=== PATIENT | male | born 1995 | race Caucasian/White ===

== ENCOUNTER 2018-12-09 05:25 | Emergency (ER) | payer OTHER ==
[2018-12-09] MEDS ORDERED: NORMAL SALINE 1000 ML 1,000 ML IV ONE (07:32)
[2018-12-09] MEDS ORDERED: DIPHENHYDRAMINE HCL 50 MG/ML VIAL IV ONE (07:47)
[2018-12-09] MEDS ORDERED: METOCLOPRAMIDE HCL INJ/PF 10 MG/2 ML SDV IV ONE (07:47)
--- NOTE | 2018-12-09 07:55 | ER Document Report ---
ED Headache - General Chief Complaint: Headache Stated Complaint: HEADACHE Time Seen by Provider: 12/09/18 07:31 TRAVEL OUTSIDE OF THE [place] IN LAST 30 DAYS: No - HPI Notes: Patient is a 23-year-old male that presents to the emergency department for chief complaint of headache. Patient reports having a headache for the last 2 years. He states there is always some pain in his head. Yesterday at noon he noticed increasing pain. He describes it as a tightness circumferentially around his head but states the very top of his head feels the worst. He denies being diagnosed with migraine headaches in the past but has had work-up at [facility]. He states in February of last year he had an MRI done but denied any treatment being started after that work-up. He states he was taking Motrin for the headaches but it was not working so he stopped. He has not taken any medication at home. He denies any aggravating or relieving factors to his headache. He does endorse associated nausea and blurry vision when the pain gets severe. He states he had one episode of emesis this morning. He denies any numbness, weakness or neck pain. Patient does state that today he felt chilled and his significant other checked his temperature. Initially she states it was 99.8 and then when she rechecked it 15 minutes later it increased to 101.2 orally. She is checked it with the ear thermometer and it was reportedly 102.0 in his ear. Patient denies sick contacts. He denies cough, congestion, sinus drainage, abdominal pain and urinary complaints. Past Medical History: Asthma Past Surgical History: Femur fracture repair Social History: Occasional alcohol. Denies tobacco and drug use. Family History: Parents have CAD. Denies history of clotting disorders Allergies: Reviewed, see documented allergy list. REVIEW OF SYSTEMS: CONSTITUTIONAL : fever No chills No diaphoresis No recent illness EENT: vision changes No congestion No sore throat CARDIOVASCULAR: No chest pain No palpitations RESPIRATORY: No shortness of breath No cough No difficulty breathing GASTROINTESTINAL: No abdominal pain nausea vomiting No diarrhea GENITOURINARY: No dysuria No hematuria No difficulty urinating MUSCULOSKELETAL: No back pain No leg pain No arm pain SKIN: No rashes No lesions LYMPHATIC: No swollen, enlarged glands. NEUROLOGICAL: No lightheadedness headache No weakness No paresthesias PSYCHIATRIC: No anxiety No depression PHYSICAL EXAMINATION: Vital signs reviewed, nursing noted reviewed. GENERAL: Appears uncomfortable, well-nourished, in moderate distress HEAD: Atraumatic, normocephalic. EYES: Eyes appear normal, extraocular movements intact, sclera anicteric, conjunctiva are normal. ENT: nares patent, oropharynx clear without exudates. Moist mucous membranes. NECK: No midline or paraspinal tenderness, normal range of motion, supple without lymphadenopathy, negative jolt sign. No meningismus. LUNGS: Breath sounds clear to auscultation bilaterally and equal. No wheezes rales or rhonchi. HEART: Regular rate and rhythm without murmurs ABDOMEN: Soft, nontender, normoactive bowel sounds. No rebound, guarding, or rigidity. No masses appreciated. EXTREMITIES: Nontender, good range of motion, no pitting or edema. NEUROLOGICAL: No focal neurological deficits. Moves all extremities spontaneously Motor and sensory grossly intact on exam. PSYCH: Normal mood, normal affect. SKIN: Warm, Dry, normal turgor, no rashes or lesions noted on exposed skin - Related Data Allergies/Adverse Reactions: amoxicillin Allergy (Unknown, Verified 12/09/18 07:00) Sulfa (Sulfonamide Antibiotics) Allergy (Unknown, Verified 12/09/18 07:00) Past Medical History - Social History Smoking Status: Never Smoker Chew tobacco use (# tins/day): No Frequency of alcohol use: None Drug Abuse: None Family History: Reviewed & Not Pertinent, Other - No history of clotting or bleeding disorders Patient has suicidal ideation: No Patient has homicidal ideation: No Neurological Medical History: Reports: Hx Migraine, Hx Seizures Renal/ Medical History: Denies: Hx Peritoneal Dialysis Physical Exam - Vital signs Vitals: Temp Pulse Resp BP Pulse Ox 99.3 F 98 20 142/80 H 96 12/09/18 05:31 12/09/18 05:31 12/09/18 05:31 12/09/18 05:31 12/09/18 05:31 Course - Re-evaluation Re-evalutation: 12/09/18 07:51 Vitals reviewed. Nursing notes reviewed. Patient was given IV fluids, Reglan and Benadryl for symptomatic management. He does appear uncomfortable but is afebrile at presentation. He has not had any antipyretic medication prior to coming to the emergency room. He does have records from February 05, 2018 when he had an MRI of his brain performed. It showed possible cortical venous thrombosis versus filling artifact. 12/09/18 10:13 After IV fluids Reglan and Benadryl patient was still reporting severe pain. He has become febrile in the emergency room. Patient was ordered Tylenol and Toradol for further symptomatic management. His blood work shows a leukocytosis of 13 and he has been ordered Rocephin and vancomycin for concern of possible meningitis. Patient required lumbar puncture for diagnosis of meningitis. Patient's lumbar puncture was grossly bloody. At this point I have contacted [facility] to discuss patient's findings with their neurosurgeon. His blood pressure is stable. He has a GCS of 15 and no focal neurologic deficits. Linette ent's headache is still severe after the Tylenol and Toradol and he has been ordered morphine for further pain management. 12/09/18 10:55 Patient's care was discussed with Dr. Walter Edwards, neurosurgery at [facility]. He agrees given the grossly bloody spinal tap that patient should be transferred to NICU for admission. He has no further recommendations for treatment at this time. Patient's care was then discussed with Dr. Dunbar, and ICU attending who has accepted patient for transfer. He did request patient received 1 g TXA which was given in the ED. Patient in agreement with plan of care. Laboratory 12/09/18 12/09/18 12/09/18 07:57 07:57 07:57 WBC 13.9 H RBC 5.65 H Hgb 16.2 Hct 47.3 MCV 84 MCH 28.7 MCHC 34.2 RDW 13.0 Plt Count 218 Seg Neutrophils % 82.4 H Lymphocytes % 7.8 L Monocytes % 7.7 Eosinophils % 1.7 Basophils % 0.4 Absolute Neutrophils 11.4 H Absolute Lymphocytes 1.1 Absolute Monocytes 1.1 Absolute Eosinophils 0.2 Absolute Basophils 0.1 PT 12.9 INR 0.97 APTT 27.3 Sodium 136.6 L Potassium 4.7 Chloride 103 Carbon Dioxide 24 Anion Gap 10 BUN 12 Creatinine 0.85 Est GFR ( Amer) > 60 Est GFR (Non-Af Amer) > 60 Glucose 104 Lactic Acid Calcium 9.5 12/09/18 08:56 WBC RBC Hgb Hct MCV MCH MCHC RDW Plt Count Seg Neutrophils % Lymphocytes % Monocytes % Eosinophils % Basophils % Absolute Neutrophils Absolute Lymphocytes Absolute Monocytes Absolute Eosinophils Absolute Basophils PT INR APTT Sodium Potassium Chloride Carbon Dioxide Anion Gap BUN Creatinine Est GFR ( Amer) Est GFR (Non-Af Amer) Glucose Lactic Acid 1.[address] 12/09/18 07:33 IMPRESSION: No acute intracranial pathology. No noncontrast CT findings to explain headache. EVIDENCE OF ACUTE STROKE: NO. - Vital Signs Vital signs: Temp Pulse Resp BP Pulse Ox 97.9 F 95 20 120/63 97 12/09/18 09:24 12/09/18 09:24 12/09/18 09:24 12/09/18 09:24 12/09/18 09:24 - Laboratory Result Diagrams: 12/09/18 07:57 12/09/18 07:57 Laboratory results interpreted by me: 12/09/18 12/09/18 07:57 07:57 WBC 13.9 H RBC 5.65 H Seg Neutrophils % 82.4 H Lymphocytes % 7.8 L Absolute Neutrophils 11.4 H Sodium 136.6 L Procedures - Lumbar Puncture Lumbar puncture Time completed: 10:00 Consent obtained: Yes Lumbar puncture pre-procedure: Sterile PPE donned, Betadine prep applied, Chloraprep applied, Sterile drapes applied Patient position: Sitting Lumbar puncture location: L4 Anesthetic type: 1% Lidocaine mL's of anesthetic: 5 Number of attempts: 2 Complications: No Notes: 12/09/18 10:21 Initial attempt at L4-L5 was unsuccessful. Second attempt at L3-L4 was successful with one needle redirection. Patient's tap was traumatic however the amount of blood increased from pink in the first tube to bright red blood by tube 3. Band-Aids were placed over the LP sites. Patient laid supine after the procedure. No immediate complications. Patient tolerated well. Critical Care Note - Critical Care Note Total time excluding time spent on procedures (mins): 45 Comments: Critical care time 45 exclusive from separate billable procedures for a patient requiring complex medical decision making, and high potential for clinical deterioration. Time spent obtaining history from patient or surrogate, discussions with consultants, development of treatment plan with patient or cintron rrogate, evaluation of patient's response to treatment, examination of patient, ordering and performing treatments and interventions, ordering and review of laboratory studies, re-evaluation of patient's condition, ordering and review of radiographic studies and review of old charts Discharge - Discharge Clinical Impression: Subarachnoid hemorrhage Condition: Stable Disposition: [facility]
[2018-12-09 08:03] LABS: ABSOLUTE BASOPHILS # (AUTO) 0.1 10^3/uL (0.0-0.2); ABSOLUTE EOSINOPHILS # (AUTO) 0.2 10^3/uL (0.0-0.6); ABSOLUTE LYMPHOCYTES (AUTO) 1.1 10^3/uL (0.5-4.7); ABSOLUTE MONOCYTES (AUTO) 1.1 10^3/uL (0.1-1.4); ABSOLUTE NEUT (AUTO) 11.4 10^3/uL (1.7-8.2); BASOPHILS % (AUTO) 0.4 % (0-2); EOSINOPHILS % (AUTO) 1.7 % (0-6); HEMATOCRIT 47.3 % (37.9-51.0); HEMOGLOBIN 16.2 g/dL (13.5-17.0); LYMPHOCYTES % (AUTO) 7.8 % (13-45); MEAN CORPUSCULAR HEMOGLOBIN 28.7 pg (27.0-33.4); MEAN CORPUSCULAR HGB CONC 34.2 g/dL (32.0-36.0); MEAN CORPUSCULAR VOLUME 84 fl (80-97); MONOCYTES % (AUTO) 7.7 % (3-13); PLATELET COUNT 218 10^3/uL (150-450); RED BLOOD COUNT 5.65 10^6/uL (4.35-5.55); SEGMENTED NEUTROPHILS % (AUTO) 82.4 % (42-78); TOTAL CELLS COUNTED % (AUTO) 100 %; WHITE BLOOD COUNT 13.9 10^3/uL (4.0-10.5)
[2018-12-09 08:14] LABS: INTERNATIONAL RATION (INR) 0.97; PARTIAL THROMBOPLASTIN TIME 27.3 SEC (23.5-35.8); PROTHROMBIN TIME 12.9 SEC (11.4-15.4)
[2018-12-09] MEDS ORDERED: VANCOMYCIN HCL INJ 1000 MG VIAL IV ONE (08:18)
[2018-12-09] MEDS ORDERED: CEFTRIAXONE INJ 1000 MG VIAL IV ONE (08:18)
[2018-12-09 08:27] LABS: ANION GAP 10 (5-19); BLOOD UREA NITROGEN 12 mg/dL (7-20); CALCIUM 9.5 mg/dL (8.4-10.2); CARBON DIOXIDE 24 mmol/L (22-30); CHLORIDE 103 mmol/L (98-107); GLUCOSE 104 mg/dL (75-110); POTASSIUM 4.7 mmol/L (3.6-5.0); SODIUM 136.6 mmol/L (137-145)
--- NOTE | 2018-12-09 08:45 | RADIOLOGY REPORT (SQ) ---
EXAM DESCRIPTION: CT HEAD WITHOUT COMPLETED DATE/TIME: 12/09/2018 8:25 am REASON FOR STUDY: headache COMPARISON: None. TECHNIQUE: Axial images acquired through the brain without intravenous contrast. Images reviewed wi th bone, brain and subdural windows. Additional sagittal and coronal reconstructions were generated. Images stored on PACS. All CT scanners at this facility use dose modulation, iterative reconstruction, and/or weight based d osing when appropriate to reduce radiation dose to as low as reasonably achievable (ALARA). [facility]: Dose Right [facility]: CareDose [facility]: Dose Right [facility]: Teradose 4D [facility]: [place] RADIATION DOSE: CT Rad equipment meets quality standard of care and radiation dose reduction techniq ues were employed. CTDIvol: 53.2 mGy. DLP: 1044 mGy-cm. mGy. LIMITATIONS: None. FINDINGS: VENTRICLES: Normal size and contour. CEREBRUM: No masses. No hemorrhage. No midline shift. No evidence for acute infarction. Normal gra y/white matter differentiation. No areas of low density in the white matter. CEREBELLUM: No masses. No hemorrhage. No alteration of density. No evidence for acute infarction. EXTRAAXIAL SPACES: No fluid collections. No masses. ORBITS AND GLOBE: No intra- or extraconal masses. Normal contour of globe without masses. CALVARIUM: No fracture. PARANASAL SINUSES: No fluid or mucosal thickening. SOFT TISSUES: No mass or hematoma. OTHER: No other significant finding. IMPRESSION: No acute intracranial pathology. No noncontrast CT findings to explain headache. EVIDENCE OF ACUTE STROKE: NO. COMMENT: Quality ID # [id number]: Final reports with documentation of one or more dose reduction techniques (e.g., Automated exposure control, adjustment of the mA and/or kV according to patient size, use of iterative reconstruction technique) TECHNICAL DOCUMENTATION: JOB ID: [id number] [email or web address] All Rights Reserved Reading location - IP/workstation name: [email or web address]
[2018-12-09] MEDS ORDERED: ACETAMINOPHEN 325 MG TABLET PO ONE (09:00)
[2018-12-09] MEDS ORDERED: KETOROLAC TROMETHAMINE INJ/PF 30 MG/1 ML SDV IV ONE (09:00)
[2018-12-09] MEDS: LIDOCAINE 1% INJ-PF (10 MG/ML) 30 ML SDV INJ ONE ×2 (09:06→10:31)
[2018-12-09] MEDS ORDERED: MORPHINE SULFATE 10 MG/ML INJ IV ONE (10:03)
[2018-12-09] MEDS ORDERED: TRANEXAMIC ACID INJ/PF 1,000 MG/10 ML SDV IV ONE (10:44)
[2018-12-09 10:55] LABS: APPEARANCE TUBE 1 CLOUDY; APPEARANCE TUBE 2 CLOUDY; APPEARANCE TUBE 3 TURBID; APPEARANCE TUBE 4 CLOUDY; COLOR TUBE 1 PINK; COLOR TUBE 2 PINK; COLOR TUBE 3 RED; COLOR TUBE 4 PINK; CSF TUBE NUMBER 1
[2018-12-09 10:56] LABS: RED BLOOD CELL,CSF 7777 /uL (0-10)
[2018-12-09 11:04] LABS: GLUCOSE,CSF 60 mg/dL (40-70); PROTEIN,CSF 48 mg/dL (12-60)
[2018-12-09 11:07] LABS: WHITE BLOOD CELL,CSF 11 /uL (0-5)
[2018-12-09 11:20] LABS: MONONUCLEAR CELLS CSF 2 %; POLYMORPHONUCLEAR CELLS CSF 98 %
[2018-12-09 11:21] VITALS: BP 130/73
[2018-12-09 11:24] LABS: MONONUCLEAR CELLS CSF 26 %; POLYMORPHONUCLEAR CELLS CSF 74 %
[2018-12-09 11:26] LABS: APPEARANCE TUBE 1 CLOUDY; APPEARANCE TUBE 2 CLOUDY; APPEARANCE TUBE 3 TURBID; APPEARANCE TUBE 4 CLOUDY; COLOR TUBE 1 PINK; COLOR TUBE 2 PINK; COLOR TUBE 3 RED; COLOR TUBE 4 PINK; CSF TUBE NUMBER 3
[2018-12-09 11:27] LABS: RED BLOOD CELL,CSF 155500 /uL (0-10)
[2018-12-09 11:28] LABS: WHITE BLOOD CELL,CSF 250 /uL (0-5)
== END 2018-12-09 11:30 | disposition short-term general hospital (02) ==
LOC: ER 05:25
PROC: 009U3ZX Drainage of Spinal Canal, Percutaneous Approach, Diagnostic (ICD-10-PCS; principal; 2018-12-09)
DX: I60.9 Nontraumatic subarachnoid hemorrhage, unspecified (principal); R51 Headache; R11.0 Nausea; H53.8 Other visual disturbances; R50.9 Fever, unspecified; J45.909 Unspecified asthma, uncomplicated
CPT/HCPCS: 99291; 96361; 96374; 96375; 36415; 87040; 87070; 87205; 85025; 85610; 85730; 89050; 82945; 84157; 80048; 83605; 70450; 62270; J1200; J1885; J2765; J2270; J0696; J7030; J3370; J3490